=== PATIENT | male | born 1950 | race Caucasian/White ===

== ENCOUNTER → 2017-04-30 | Outpatient (CLI) | payer MEDICARE, BC ==
--- NOTE | 2017-04-30 15:39 | XR ---
EXAMINATION TYPE: XR calcaneus 2V RT DATE OF EXAM: 04/30/2017 COMPARISON: NONE HISTORY: Heel pain for 3 weeks per patient. Right foot pain per order. TECHNIQUE: 2 views right calcaneus are obtained. FINDINGS: There is no acute fracture or dislocation in right calcaneus. Boehler's angle is maintained . There is moderate size inferior calcaneal spur noted. Overlying soft tissue is unremarkable. Some n arrowing at calcaneal cuboid joints is felt present. IMPRESSION: Moderate size inferior calcaneal spur.
== END | disposition home or self-care (01) ==
LOC: RADXRYALE 14:59
PROVIDERS: ATTEND Physician Assistant Medical
DX: M77.31 Calcaneal spur, right foot (principal)

== ENCOUNTER → 2018-03-01 | Outpatient (CLI) | payer BC, MEDICARE ==
--- NOTE | 2018-03-01 10:17 | MR ---
EXAMINATION TYPE: MR shoulder RT wo con DATE OF EXAM: 03/01/2018 COMPARISON: Plain film 02/03/2018 from outside institution HISTORY: Right shoulder pain TECHNIQUE: Multiplanar, multisequence imaging of the shoulder is performed without contrast. FINDINGS: There is some motion which limits the exam. Rotator Cuff: Supraspinatus tendon tear present with retraction to the level of the acromioclavicular joint. The infraspinatus tendon also shows tear with retraction. Distal acromion is turned down, lamb spect there is a distal acromial spur. Fluid signal present in the subacromial subdeltoid bursa. Acromioclavicular Joint: Hypertrophic change at the acromioclavicular joint is noted. Glenohumeral Joint: The shoulder is high riding. Some arthropathy is present, mild spurring of the hu meral head Labrum: There is some intrasubstance signal within the superior labrum. The inferior aspect anteriorl y there is a oval fluid structure measuring 1 cm which could represent a para labral cyst, findings s uggestive of labral tear inferiorly, the anterior labrum shows abnormal signal suggesting tear, the l abrum is somewhat irregular in appearance at its anterior margin Biceps Tendon: Fluid signal is present along the long head of biceps tendon shows a normal position. Bone marrow signal: Pseudocysts are present in the humeral head. Other: There is a joint effusion present. Fluid signal present along the subscapularis musculature te ndinous junction and muscle IMPRESSION: Supraspinatus and infraspinatus tendon tears with retraction as described, para labral cysts and abno rmal labral signal compatible with labral tear. Motion on the exam. Additional findings above.
== END | disposition home or self-care (01) ==
LOC: RADMRIMAIN 08:45
PROVIDERS: ATTEND Orthopaedic Surgery
DX: M75.101 Unspecified rotator cuff tear or rupture of right shoulder, not specified as traumatic (principal); S46.811A Strain of other muscles, fascia and tendons at shoulder and upper arm level, right arm, initial encounter; M19.011 Primary osteoarthritis, right shoulder; S43.431A Superior glenoid labrum lesion of right shoulder, initial encounter

== ENCOUNTER → 2019-10-25 | Outpatient (CLI) | payer MEDICARE ==
--- NOTE | 2019-10-25 20:05 | CONS ---
CONSULTATION REASON FOR CONSULTATION: Hypersomnia. This is a 69-year-old male patient whose primary care physician is Dr. Griffin. He was referred to me for evaluation of increased tiredness and sleepiness. The patient is accompanied today by his . The patient had a closed-head injury around 2 years ago. Since then he has had problems with neck pain and numbness in his right head in addition to difficulty with memory and concentration and some degree of cognition. 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 He is currently on a combination of Namenda and Aricept. Sleep apnea was considered by the primary care, and for that reason he was referred to me. He is snoring. Unsure if he is quitting breathing at night, and there is no reported history of witnessed apneas. He wakes up tired during the day. He goes to bed between 8 and 9 p.m., wakes up at 4 a.m. in the morning, and after waking up he takes naps which can last up to 1-1/2 hours. He cannot get himself comfortable because of his chronic pain in the shoulder and the neck. He sleeps on his back with arms wrapped on his chest. He states that he is able to generate a good 6 hours of sleep. His current Trevor Score is 6. No recent weight gain. No major sleep fragmentation. He does not wake up in the middle of the night for urination. No dreams. No hallucinations. No cataplexy. No sleepwalking. No history of alcoholism. No history of substance abuse. PAST MEDICAL HISTORY: 1. Closed-head injury related to a fall. 2. Chronic anxiety/depression. 3. Dementia. 4. BPH. PAST SURGICAL HISTORY: None. DRUG ALLERGIES: NOT KNOWN. OUTPATIENT MEDICATION LIST: Includes Flomax 0.4 a day, Aricept 10 mg p.o. daily, Namenda 10 mg p.o. twice a day, vitamin D one tablet a day, 1000 units, Zoloft 100 mg p.o. daily, and Avodart 0.5 mg p.o. daily. SOCIAL HISTORY: The patient is a nonsmoker. No history of alcoholism. No history of IV drugs. He is retired from [employer]. He has been retired for around 20 years. FAMILY HISTORY: Mother is alive at the age of 92. Father at the age of 89 from coronary artery disease and he had 4-vessel bypass surgery. REVIEW OF SYSTEMS: Fourteen-point review of systems was done. Positive findings were all mentioned above in the history of present illness. The patient reported increased sleepiness. Trevor score is currently 6. No nocturnal heartburn. No nocturia. No grinding of the teeth. No sleepwalking or sleeptalking. No dryness of the mouth. No anxiety or panic attacks. No claustrophobia. He is difficulty with memory and concentration. Cognition is also impaired. PHYSICAL EXAMINATION: VITAL SIGNS: BP is 117/60, pulse 74, respirations 16, temperature 97.7, saturation 95% on room air. Height is 5 feet 10 inches, weight 225 and BMI is 34.7. Neck size is 18 inches. GENERAL APPEARANCE: Calm, comfortable. HEAD: Atraumatic, normocephalic. NECK: Supple. No JVD. No goiter or neck masses. Mallampati class IV. LUNGS: Clear to auscultation. HEART: Heart sounds are regular rate and rhythm. Normal S1, S2. No S3, S4. No murmurs. ABDOMEN: Soft, nontender. No organomegaly. EXTREMITIES: No edema. No cyanosis or clubbing. IMPRESSION: 1. Hypersomnia, Trevor score of 6. Patient's symptoms have gotten worse following a closed-head injury that occurred approximately 2 years ago. He has a Mallampati class IV with neck size of 18 inches. His BMI is 34.7. He is having increased snoring without any significant witnessed apneas. There is a possibility of obstructive sleep apnea, yet my overall suspicion for severe sleep apnea is not that high. I think a lot of his cognitive impairment is probably related to dementia, as the patient is having also some memory problems, currently on a combination of Aricept and Namenda. It is worthwhile to rule out obstructive sleep apnea, especially as the patient is having excessive sleeping hours and taking multiple naps during the day. 2. Dementia. 3. Chronic anxiety/depression. 4. Benign prostatic hypertrophy. PLAN: 1. Encourage weight loss. 2. Implement good sleep hygiene measures. 3. Proceed with a screening polysomnogram to rule out obstructive sleep apnea and treat accordingly. This may be ultimately a difficult treatment, as the patient tells me that he is not willing to undertake unless he has severe disease. This is something to discuss in the future, and a final decision will be made once the data is available regarding the possibility of obstructive sleep apnea. MMODL / IJN: [id number] /
== END | disposition home or self-care (01) ==
LOC: SLEEP 13:15
PROVIDERS: ATTEND Internal Medicine Critical Care Medicine
DX: R06.83 Snoring (principal); F03.90 Unspecified dementia, unspecified severity, without behavioral disturbance, psychotic disturbance, mood disturbance, and anxiety; F41.9 Anxiety disorder, unspecified; F32.9 Major depressive disorder, single episode, unspecified; N40.0 Benign prostatic hyperplasia without lower urinary tract symptoms; Z79.899 Other long term (current) drug therapy
CPT/HCPCS: 99211

== ENCOUNTER → 2019-11-02 | Outpatient (CLI) | payer MEDICARE ==
--- NOTE | 2019-11-02 11:52 | MR ---
EXAMINATION TYPE: MR brain wo/w con DATE OF EXAM: 11/02/2019 COMPARISON: None HISTORY: Mild cognitive impairment TECHNIQUE: Multiplanar, multisequence images of the brain and brainstem is performed without and with IV contras t, utilizing 11 mL intravenous Gadavist . FINDINGS: There is motion on the exam. Diffusion weighted images demonstrate no evidence of a recent infarct or other diffusion abnormality. There is no extra-axial fluid collection. Confluent perivent ricular hyperintensity and inversion recovery T2-weighted sequences noted, some scattered hyperintens ities also suspected in the deep white matter of the frontal lobes The ventricular system and cistern al spaces are normal in size and appearance, subdural spaces over the frontal lobes somewhat prominen t. The brain volume is age appropriate, there is mild cortical atrophy. Midline structures demonstrate normal morphology. The craniocervical junction appears within normal limits. Post contrast images demonstrate no abnormal enhancement. The dural venous sinuses appear pa tent. The visualized sinuses are clear and the globes are intact, serpiginous enhancing structure at the superior left orbit is thought likely to represent a varix. IMPRESSION: Difficult to exclude chronic subdural hematoma, there are prominent cerebral spinal fluid spaces over the convexities. Age-related atrophy and probable chronic small vessel ischemia. 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
== END | disposition home or self-care (01) ==
LOC: RADMRIMAIN 09:53
PROVIDERS: ATTEND Physician Assistant Medical
DX: G31.1 Senile degeneration of brain, not elsewhere classified (principal)
CPT/HCPCS: 70553; A9585

== ENCOUNTER 2023-12-01 11:12 | Day surgery (SDC) | payer MEDICARE ==
[2023-11-30 09:07] VITALS: BMI 29.4
[~2023-12-01 11:12] MED LIST: LIDOCAINE 1% (10MG/ML) FOR IV START INTRADERMA PRN
[2023-12-01] MEDS: LACTATED RINGERS 1,000 ML IV SCH (12:07)
[2023-12-01] MEDS ORDERED: PROPOFOL 10 MG/ML 20 ML VIAL IV ONE (12:24)
--- NOTE | 2023-12-01 12:25 | P.GSHP ---
History of Present Illness H&P Date: 12/01/23 Chief Complaint: Screening 73-year-old male here today for colonoscopy. Patient with some dementia issues. Not able provide a significant history. Denies constipation or bleeding. Past Medical History Past Medical History: Prostate Disorder Additional Past Medical History / Comment(s): enlarged prostate, left ear hard of hearing History of Any Multi-Drug Resistant Organisms: None Reported Additional Past Surgical History / Comment(s): colonoscopy Additional Past Anesthesia/Blood Transfusion Reaction / Comment(s): no blood transfusion Smoking Status: Former smoker - Past Family History Brother(s) Family Medical History: Cancer Additional Family Medical History / Comment(s): x3 brothers lung, prostate Father Family Medical History: Cancer Additional Family Medical History / Comment(s): prostate Medications and Allergies Home Medications Medication Instructions Recorded Confirmed Type Donepezil [Aricept] 10 mg PO HS 11/30/23 11/30/23 History Dutasteride [Avodart] 0.5 mg PO DAILY 11/30/23 11/30/23 History Memantine HCl 10 mg PO BID 11/30/23 11/30/23 History Mirabegron [Myrbetriq] 50 mg PO DAILY 11/30/23 11/30/23 History Sertraline HCl 100 mg PO DAILY 11/30/23 11/30/23 History Tamsulosin [Flomax] 0.4 mg PO DAILY 11/30/23 11/30/23 History Allergies Allergy/AdvReac Type Severity Reaction Status Date / Time No Known Allergies Allergy Verified 12/01/23 11:41 Surgical - Exam Vital Signs Temp Pulse Resp BP Pulse Ox 97.9 F 52 L 16 115/63 97 12/01/23 11:51 12/01/23 11:51 12/01/23 11:51 12/01/23 11:51 12/01/23 11:51 Physical exam: General: Well-developed, well-nourished HEENT: Normocephalic, sclerae nonicteric Abdomen: Nontender, nondistended Extremities: No edema Neuro: Alert and oriented Assessment and Plan (1) Colon cancer screening Narrative/Plan: Will proceed with colonoscopy at this time. Current Visit: Yes Status: Acute Code(s): Z12.11 - ENCOUNTER FOR SCREENING FOR MALIGNANT NEOPLASM OF COLON SNOMED Code(s): 384513032
[2023-12-01 12:28] VITALS: RESP 16; TEMP 97.9
--- NOTE | 2023-12-01 12:42 | P.PCN ---
Date of Procedure: 12/01/23 Procedure(s) Performed: PREOPERATIVE DIAGNOSIS: Colon cancer screening POSTOPERATIVE DIAGNOSIS: Colon polyps, diverticulosis PROCEDURE: Colonoscopy with snare polypectomy ANESTHESIA: MAC SURGEON: Chapito Rosales M.D. SPECIMENS: Colon polyps ENDOSCOPIC PROCEDURE: The patient was placed on the endoscopy table in the left decubitus position. The Olympus colonoscope was inserted into the anus and passed under direct visualization to the base of the cecum. The appendiceal orifice was visualized. From that point the scope was slowly withdrawn inspecting all surfaces carefully. There were no neoplastic inflammatory or polypoid lesions throughout the cecum. In the ascending colon a small polyp was seen and removed using the snare with cautery technique. The remainder of the ascending and transverse colon appeared normal. In the descending colon another small polyp was seen and removed using a similar technique. The remainder of the descending sigmoid and rectum was normal. The patient had mild scattered diverticulosis. Digital rectal examination was normal. The patient was taken to the recovery room in stable condition per anesthesia guidelines. RECOMMENDATIONS: Await biopsy results. Consider repeat colonoscopy 5 years.
[2023-12-01 13:12] VITALS: BP 110/62; PULSE 58
== END 2023-12-01 13:32 | disposition home or self-care (01) ==
LOC: ORWHC2ENDO 11:12
PROVIDERS: ATTEND Surgery
DX: Z12.11 Encounter for screening for malignant neoplasm of colon (principal); D12.2 Benign neoplasm of ascending colon; D12.4 Benign neoplasm of descending colon; K57.30 Diverticulosis of large intestine without perforation or abscess without bleeding; F03.90 Unspecified dementia, unspecified severity, without behavioral disturbance, psychotic disturbance, mood disturbance, and anxiety; N40.0 Benign prostatic hyperplasia without lower urinary tract symptoms; F32.A Depression, unspecified; H91.92 Unspecified hearing loss, left ear; Z87.891 Personal history of nicotine dependence; Z86.010 Personal history of colon polyps; Z79.899 Other long term (current) drug therapy
CPT/HCPCS: 88305; 45385; J2704